=== PATIENT | female | born 1975 | race Caucasian/White ===

== ENCOUNTER 2019-09-25 17:46 | Emergency (ER) | payer OTHER ==
[2019-09-25] MEDS ORDERED: Acetaminophen/oxyCODONE 325-5 MG Tab ONE (18:00)
[2019-09-25] MEDS ORDERED: Ibuprofen 800 MG Tab ONE (18:00)
[2019-09-25] MEDS ORDERED: Amoxicillin/Clavulanate K 875-125 MG Tab ONE (18:00)
[2019-09-25] MEDS ORDERED: LORazepam 1 MG Tab PO ONE (18:08)
[2019-09-25 18:10] VITALS: BP 114/84; PULSE 88
[2019-09-25] MEDS ORDERED: Acetaminophen/oxyCODONE 325-5 MG Tab PO ONE (18:10)
[2019-09-25] MEDS ORDERED: cefTRIAXone 1 GM Vial IM ONE (18:27)
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
== END 2019-09-25 19:18 | disposition home health service (06) ==
LOC: LB.ED 17:46
DX: S51.852A Open bite of left forearm, initial encounter (principal); S71.052A Open bite, left hip, initial encounter; S21.152A Open bite of left front wall of thorax without penetration into thoracic cavity, initial encounter; S31.825A Open bite of left buttock, initial encounter; W54.0XXA Bitten by dog, initial encounter
CPT/HCPCS: 96372; 99283; A9270; J0696

== ENCOUNTER 2021-01-09 09:29 | Emergency (ER) | payer SELFPAY ==
[2021-01-09] MEDS: Ketorolac 60 MG/2 ML SDV IM ONE (09:57)
[2021-01-09] MEDS ORDERED: Sodium Chloride 0.9% 10 ML Syringe FLUSH PRN (10:03)
[2021-01-09] MEDS: Ketorolac 60 MG/2 ML SDV ONE (10:13)
[2021-01-09] MEDS ORDERED: Heparin Sodium/D5W 25,000 UNITS/500 ML BAG IV SCH (10:15)
[2021-01-09] MEDS: Heparin Sodium 5,000 UNITS/0.5 ML Syringe IV ONE (10:25)
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
[2021-01-09] MEDS: LORazepam 2 MG/ML SDV IVPUSH ONE (10:40)
[2021-01-09] MEDS: Morphine 4 MG/ML VIAL IVPUSH ONE ×2 (10:43→11:37)
[2021-01-09] MEDS: LORazepam 2 MG/ML SDV ONE (10:44)
[2021-01-09] MEDS: Morphine 4 MG/ML VIAL ONE ×2 (10:44→11:34)
[2021-01-09 10:58] VITALS: BP 123/77; PULSE 82
[2021-01-11] MEDS: Heparin Sodium/D5W 25,000 UNITS/500 ML BAG IV SCH (10:55)
== END 2021-01-09 11:50 ==
LOC: LB.ED 09:29
DX: I70.221 Atherosclerosis of native arteries of extremities with rest pain, right leg (principal); Z87.891 Personal history of nicotine dependence
CPT/HCPCS: 36415; 80048; 81241; 85027; 85379; 85610; 93005; 96365; 96372; 96375; 96376; 99284-25; 99285; J1644; J1644-GY; J1885; J2060; J2270

== ENCOUNTER 2021-01-15 17:09 | Emergency (ER) | payer SELFPAY ==
[2021-01-15 17:22] VITALS: PULSE 80
[2021-01-15] MEDS: Acetaminophen/HYDROcodone 325-5 MG Tab PO ONE (18:29)
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
[2021-01-15] MEDS: Acetaminophen/HYDROcodone 325-10 MG Tab ONE (18:35)
[2021-01-15] MEDS: Acetaminophen/HYDROcodone 325-5 MG Tab ONE (18:38)
== END 2021-01-15 18:38 | disposition home or self-care (01) ==
LOC: LB.ED 17:09
DX: R10.31 Right lower quadrant pain (principal); R10.32 Left lower quadrant pain; Z79.82 Long term (current) use of aspirin; Z79.01 Long term (current) use of anticoagulants
CPT/HCPCS: 81001; 99283; A9270